=== PATIENT | female | born 1940 | race Hispanic/Latino ===

== ENCOUNTER 2018-12-23 14:18 | Emergency (ER) | payer OTHER ==
[2018-12-23 14:51] LABS: BASOPHILS % (AUTO) 0.6 % (0.0-5.0); EOSINOPHILS % (AUTO) 5.6 % (0.0-8.0); LYMPHOCYTES % (AUTO) 22.7 % (21.0-51.0); MEAN CORPUSCULAR HEMOGLOBIN 29.6 pg (27.0-33.0); MEAN CORPUSCULAR HGB CONC 34.1 g/dL (32.0-36.0); MEAN CORPUSCULAR VOLUME 86.9 fL (79-99); MONOCYTES % (AUTO) 5.7 % (3.0-13.0); NEUTROPHILS % (AUTO) 65.4 % (40.0-77.0); NUCLEATED RED BLOOD CELLS 0.1 % (0.0-0.19); PLATELET COUNT (AUTO) 185 K/uL (130-400); RED BLOOD CELL COUNT(AUTO) 5.06 MIL/uL (4.00-5.50); RED CELL DISTRIBUTION WIDTH 14.3 % (11.0-15.5); WHITE BLOOD COUNT (AUTO) 7.6 K/uL (4.8-10.8)
[2018-12-23 14:59] LABS: CREATININE 1.3 mg/dL (0.5-1.5)
[2018-12-23 15:00] LABS: INR 0.92 (0.85-1.15); PARTIAL THROMBOPLASTIN TIME 26.8 SEC (26.3-35.5); PROTHROMBIN TIME 9.7 SEC (9.6-11.6)
[2018-12-23 15:09] LABS: ALBUMIN 4.5 g/dL (3.5-5.0); BILIRUBIN,TOTAL 1.4 mg/dL (0.2-1.0); TOTAL PROTEIN, SERUM 8.6 g/dL (6.0-8.3)
[2018-12-23] MEDS ORDERED: MECLIZINE HCL 25 MG TABLET ONE (15:38)
[2018-12-23] MEDS ORDERED: ACETAMINOPHEN 325 MG TAB ONE (15:38)
== END 2018-12-23 16:27 | disposition home or self-care (01) ==
LOC: EDH 14:18
DX: H81.399 Other peripheral vertigo, unspecified ear (principal); R68.84 Jaw pain; R20.2 Paresthesia of skin; I10 Essential (primary) hypertension; E03.9 Hypothyroidism, unspecified; I25.10 Atherosclerotic heart disease of native coronary artery without angina pectoris; Z95.1 Presence of aortocoronary bypass graft; Z88.6 Allergy status to analgesic agent
CPT/HCPCS: 36415; 70450; 71045; 80053; 82550; 83874; 84484; 85025; 85610; 85730; 93005

== ENCOUNTER 2021-01-07 09:34 | Emergency (ER) | payer OTHER ==
[~2021-01-07] VITALS: Ht 152.4 cm; Wt 54.4 kg
[2021-01-07 09:59] LABS: BASOPHILS % (AUTO) 0.5 % (0.0-5.0); EOSINOPHILS % (AUTO) 9.5 % (0.0-8.0); HEMATOCRIT 41.9 % (36-48); LYMPHOCYTES % (AUTO) 17.6 % (21.0-51.0); MEAN CORPUSCULAR HEMOGLOBIN 29.5 pg (27.0-33.0); MEAN CORPUSCULAR HGB CONC 32.9 g/dL (32.0-36.0); MEAN CORPUSCULAR VOLUME 89.5 fL (79-99); MONOCYTES % (AUTO) 5.3 % (3.0-13.0); NEUTROPHILS % (AUTO) 66.9 % (40.0-77.0); PLATELET COUNT (AUTO) 162 K/uL (130-400); RED BLOOD CELL COUNT(AUTO) 4.68 MIL/uL (4.00-5.50); RED CELL DISTRIBUTION WIDTH 13.4 % (11.0-15.5)
[2021-01-07 10:14] LABS: POTASSIUM 3.6 mmol/L (3.5-5.1)
[2021-01-07 10:19] LABS: BILIRUBIN,TOTAL 0.7 mg/dL (0.2-1.0); MAGNESIUM 1.9 mg/dL (1.80-2.40)
[2021-01-07] MEDS ORDERED: ONDANSETRON ODT 4MG TAB SL SCH (10:30)
[2021-01-07] MEDS ORDERED: MECLIZINE HCL 25 MG TABLET PO SCH (10:30)
[2021-01-07 10:35] VITALS: BP 103/82
[2021-01-07 10:53] LABS: APPEARANCE,URINE Cloudy (CLEAR); BILIRUBIN,URINE Negative (NEGATIVE); COLOR,URINE Dark Yellow (YELLOW); GLUCOSE, URINE (UA) Negative (NEGATIVE); KETONES,URINE Trace mg/dL (NEGATIVE); LEUKOCYTE ESTERASE ,URINE Small (NEGATIVE); NITRATE,URINE Negative (NEGATIVE); OCCULT BLOOD,URINE Small (NEGATIVE); PH,URINE 5.5 (5.0-8.0); PROTEIN,URINE POS 2+ mg/dL (NEGATIVE)
[2021-01-07 11:31] LABS: RBC,URINE 0-1 /HPF (0-1)
[2021-01-07 11:32] LABS: BACTERIA,URINE Few /HPF (None Seen)
[2021-01-07 12:12] VITALS: BP_SYST 119; BP_SYST 120; BP_SYST 127; BP_DIAS 55; BP_DIAS 63; BP_DIAS 65
[2021-01-07] MEDS ORDERED: SUCR1TAB28 PO (12:54)
[2021-01-07 13:16] VITALS: BP 134/57
== END 2021-01-07 13:43 | disposition home or self-care (01) ==
LOC: EDH 09:34
DX: R42 Dizziness and giddiness (principal); R29.810 Facial weakness; R10.13 Epigastric pain; R29.6 Repeated falls; R51.9 Headache, unspecified; I10 Essential (primary) hypertension; Z88.5 Allergy status to narcotic agent; Z79.899 Other long term (current) drug therapy; Z98.890 Other specified postprocedural states
CPT/HCPCS: 36415; 70450; 71045; 80053; 81001; 82150; 82550; 83690; 83735; 84484; 85025; 93005

== ENCOUNTER 2021-10-18 12:11 | Emergency (ER) | payer OTHER ==
[~2021-10-18] VITALS: Ht 152.4 cm; Wt 54.4 kg
[~2021-10-18 12:11] MED LIST: SUCR1TAB28 PO
[2021-10-18] MEDS ORDERED: ACET-66 PO (13:27)
[2021-10-18] MEDS ORDERED: ACETAMINOPHEN 500 MG TABLET PO SCH (13:30)
[2021-10-18 13:49] VITALS: BP 145/74
== END 2021-10-18 14:00 | disposition home or self-care (01) ==
LOC: EDH 12:11
DX: M25.561 Pain in right knee (principal); I25.10 Atherosclerotic heart disease of native coronary artery without angina pectoris; E78.00 Pure hypercholesterolemia, unspecified; E03.9 Hypothyroidism, unspecified; Z98.890 Other specified postprocedural states; Z88.5 Allergy status to narcotic agent; Z79.899 Other long term (current) drug therapy
CPT/HCPCS: 73562